=== PATIENT | female | born 1990 ===

== ENCOUNTER 2016-07-31 14:38 | Inpatient (IN) ==
[2016-07-31 15:26] LABS: Basophils % 0.3 %; Eosinophils # 0.1 K/mcL (0.0-0.6); Eosinophils % 0.5 %; Hematocrit 37.2 % (35.3-44.9); Hemoglobin 13.1 g/dL (11.5-15.4); Immature Granulocytes % 0.7 % (0-4); Lymphocytes # 1.8 K/mcL (0.6-4.6); Lymphocytes % 16.3 %; Mean Corpuscular HGB Conc 35.2 g/dL (31.6-35.5); Mean Corpuscular Hemoglobin 30.9 pg (28.0-33.3); Mean Corpuscular Volume 87.7 fL (83.0-100.0); Mean Platelet Volume 10.1 fL (9.4-12.4); Monocytes # 0.4 K/mcL (0.0-1.3); Monocytes % 3.3 %; Neutrophils # 8.6 K/mcL (1.6-8.9); Platelet Count 224 K/mcL (140-400); Red Blood Count 4.24 M/mcL (3.82-4.97); Segmented Neutrophils % 78.9 %
[2016-07-31 15:30] LABS: Protein/Creatinine Ratio,Urine 0.23 mg/mg (0-0.20)
[2016-07-31 15:34] LABS: Alanine Aminotransferase 37 Units/L (0-55); Aspartate Amino Transferase 37 Units/L (5-34); BUN/Creatinine Ratio 15 (6-26); Blood Urea Nitrogen 10 mg/dL (7-20); Lactate Dehydrogenase 228 Units/L (159-327); Uric Acid 5.3 mg/dL (2.6-6.0); eGFR For African Americans > 60 (> 60); eGFR For Non-African Americans > 60 (> 60)
[2016-07-31] MEDS ORDERED: miSOPROStol 25 MCG TABLET VG PRN (15:45)
[2016-07-31] MEDS ORDERED: Naloxone 0.4 MG/ML INJ IVP PRN (15:45)
[2016-07-31] MEDS ORDERED: Ondansetron 4 MG/2 ML VIAL IVP PRN (15:45)
[2016-07-31] MEDS ORDERED: Famotidine 20 MG/2 ML VIAL IVP PRN (15:45)
--- NOTE | 2016-07-31 16:12 | OB/GYN History & Physical ---
Date of Encounter: 07/31/16 Time of Encounter: 15:54 Assessment and Plan (1) 38 weeks gestation of Current visit: Yes Status: Acute (2) Preeclampsia Current visit: Yes Status: Acute Pt presenting with edema, headache, and proteinuria with elevated blood pressure in office. Admit for IOL. Cytotec 25mcg vaginally. GBS negative. Epidural when requested. Anticipate . Qualifiers: Trimester: third trimester Qualified Code(s): O14.93 - Unspecified pre- eclampsia, third trimester History of Present Illness Chief complaint: elevated blood pressure, proteinuria, headache HPI: Ms. Whipple is a 25 year old female presenting at 38w6d for IOL due to new onset of HTN with headache and 8lb weight gain. She denies other complaints today. Good FM. This has been uncomplicated. Blood type B positive. Rubella immune. Serologies and GBS negative. Past Med Surg Social Fam HX - Past Medical History Medical history: no medical history Psychiatric history: no psych history - Past Surgical History Surgical History: other - Social History Smoking Status: Former smoker Alcohol use: none Drug use: none - Family History Mother Living Status: Still Living Hx Family Cardiac Disorders: No Hx Family Respiratory Disorders: No Hx Family Cancer: No Hx Family GI Disorders: No Hx Family Genitourinary Disorders: No Hx Family Endocrine Disorder: Yes (hypothyroidism) Hx Family Musculoskeletal Disorders: No Hx Family Neuromuscular Disorders: No Hx Family Neurologic Disorders: No Hx Family HEENT Disorders: No Hx Family Autoimmune Disorders: No Hx Family Reproductive Disorders: No Hx Family Psychosocial Disorders: No Hx Family Medical Disorders: Yes (ITP) Obstetrical History - Pregnancies : 1 Medications and Allergies Cyanocobalamin (Vitamin B-12) [Vitamin B12] 1,000 mcg PO DAILY 07/31/16 [History ] Doxylamine/Pyridoxine HCl [Diclegis Dr 10-10 mg Tablet] 1 each PO DAILY [History] Ferrous Sulfate [Iron] 325 mg PO DAILY 07/31/16 [History] Pnv62/FA/Om3/Dha/Epa/Fish Oil [Cvs Gummy Vitamins] 1 each PO DAILY 01/09 [History] Allergies No Known Allergies Allergy (Verified 07/31/16 15:38) Review of System OB All systems PM: reviewed and no additional remarkable complaints except as stated Exam - Vital Signs Vital signs: Initial Vital Signs Temp Pulse Resp BP 97.3 F L 98 20 120/71 07/31/16 15:24 07/31/16 15:24 07/31/16 15:24 07/31/16 15:24 - Constitutional Constitutional: well developed, well nourished, no acute distress, average body habitus - HEENT HEENT: Mucus Membranes Moist - Lungs Respiratory exam: CTAB - Cardiovascular Cardiovascular exam: RRR, +S1, +S2 - Abdomen Abdomen: Present: gravid, non tender - Extremities Extremities exam: normal inspection Deep Tendon Reflex Grade: 2+ Normal - Vulva Vulva: bilateral: normal - Vagina Vagina: Present: normal moisture - Cervix Dilation: 1 Effacement: 0 Station: -3 - Uterus Uterus exam: Present: normal size - Anus/Rectum Anus/Rectum: Present: normal perianal skin Results Result Diagrams: 07/31/16 15:10 07/31/16 15:10 Abnormal lab results AST 37 Units/L (5-34) H 07/31/16 15:10 Protein/Creatinin Ratio 0.23 mg/mg (0-0.20) H 07/31/16 14:55 Urine Total Protein 26 mg/dL (1-14) H 07/31/16 14:55 All other labs normal. - VTE Reasons for not Prescribing Prophylaxis: Treatment not Indicated - Low risk for VTE
[2016-07-31] MEDS ORDERED: Mag Hydrox/Al Hydrox/Simeth 30 ML UDC PO PRN (16:20)
--- NOTE | 2016-07-31 19:16 | OB Labor Progress Note ---
Date of Encounter: 07/31/16 Time of Encounter: 18:10 Labor Progress Note - Subjective Subjective: Pt comfprtable, reports feeling a rare contraction. Fetus active. Denies CANTU, BV, epigastric pain - Vital Signs Vital Signs: Afeb, VSS - Cervix Cervix: 2/50/-1/post - Heart Tones Heart Tones: 120s CAT1 - [place]: Irreg, q 2-5' - Interventions Interventions: 38.6 wk IUP w/ PreE for induction, stable - Plan Plan: Continue w/ current plan. Good response to initial cytotec
[2016-07-31] MEDS ORDERED: Ringers Solution, Lactated 500 ML IVC ONE (21:15)
[2016-07-31] MEDS ORDERED: Epidural Premix (fent/bupiv) 110 ML EP SCH (21:15)
--- NOTE | 2016-07-31 21:15 | Anesthesia Evaluation PreOp ---
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 Other Medical History: Denies Any Significant HX Anesthesia History: No Prior Anesthetic Complications Alcohol Use: none Drug use: none Medications and Allergies Cyanocobalamin (Vitamin B-12) [Vitamin B12] 1,000 mcg PO DAILY 07/31/16 [History ] Doxylamine/Pyridoxine HCl [Diclegis Dr 10-10 mg Tablet] 1 each PO DAILY [History] Ferrous Sulfate [Iron] 325 mg PO DAILY 07/31/16 [History] Pnv62/FA/Om3/Dha/Epa/Fish Oil [Cvs Gummy Vitamins] 1 each PO DAILY 01/09 [History] Allergies No Known Allergies Allergy (Verified 07/31/16 15:38) - Meds/Allergy Pre-op Review Medications Reviewed: Yes Allergies Reviewed: Yes Beta Blockers on Current Med List: No Anesthesia Results - Labs 07/31/16 15:10 07/31/16 15:10 Anesthesia Exam 114/74 hr 74 Height: 1.63m 5'4" Weight: 89.5kg NPO (# of Hours): 4 Pain Scale: 0 Pain Scale Used: Numeric (1 - 10) - HEENT Pupil (Motor): Pupils equal Mallampati: II Teeth: Normal Oral Opening: Greater than 3 - 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
[2016-07-31] MEDS ORDERED: miSOPROStol 25 MCG TABLET PO STA (21:43)
--- NOTE | 2016-07-31 22:13 | OB Labor Progress Note ---
Date of Encounter: 07/31/16 Time of Encounter: 22:11 Labor Progress Note - Subjective Subjective: Pt becoming more uncomfortable with contractions. Not requesting pain meds at this time - Vital Signs Vital Signs: Afeb, VSS BP 123/59 - Cervix Cervix: 3/70/0, vtx - Heart Tones Heart Tones: 120s baseline, CAT1 - [place]: irreg q 3-7' - Interventions Interventions: 38.6 wk IUP w/ PreE for induction. Case previously discussed with Dr Ch who requested pt to be induced - Plan Plan: Start po cytotec. Continue induction. Pain management as needed
[2016-08-01] MEDS ORDERED: Oxytocin 20 units/ LR 1000 mL 20 UNIT/1,000 ML BAG IVC SCH (03:30)
[2016-08-01] MEDS: Ringers Solution, Lactated 1,000 ML IVC SCH ×2 (05:21→08:42)
[2016-08-01] MEDS ORDERED: *HR* FentaNYL (PF) 100 MCG/2 ML VIAL ONE ×2 (06:17→16:43)
[2016-08-01] MEDS ORDERED: Epidural Premix (fent/bupiv) 110 ML EP ONE ×2 (06:18→13:40)
[2016-08-01] MEDS ORDERED: *HR* Ropivacaine/PF 0.2% 10 ML AMPUL ONE ×2 (06:18→16:43)
--- NOTE | 2016-08-01 06:46 | Anesthesia Procedures ---
Date of Encounter: 08/01/16 Time of Encounter: 06:18 Procedures: Anesthesia - Epidural/Spinal Patient ID/Chart reviewed: Yes Patient examined: Yes OB Eval: Gestational age: 38.6 OB Eval: : 1 OB Eval: Hx Para: 0 OB Eval: Contractions: Non-stressed pattern Consent Obtained: Yes Supplemental Oxygen: None/Room Air Site Prep: Aseptic Technique, Sterile prep and drape, 0.5% Chlorhexidine/Alcohol Patient position: upright Local Anesthetic: Lidocaine 1% Amount of Local Anesthetic used: 2.5 Touhy Needle Gauge: 18 Touhy Needle Depth (cm): 8 Catheter Depth at Skin (cm): 14 Test Dose (1.5% Lido + Epi): Volume given (mls): 5 Test Dose Result: Negative Loading Dose: Fentanyl (mcg): 100 Loading Dose: Other: Ropivacaine 0.2% 10mL Loading Dose Administered: Thru Catheter Infusion Med: 0.125% Bupivacaine w/ 2 mcg/ml Fentanyl Infusion Rate (mls/hr): 14 (Bolus 4mL q15min; max 3/hr) Catheter Secured in Place: Tegaderm, Tape Interspace Used: L3-L4 Loss of Resistance (LINDSAY): Yes Blood: No CSF: No Paresthesia: No Procedure: x2 attempt. Patient tolerated well. Vitals + FHT's: VSS and FHR stable throughout procedure. See nursing documentation.
[2016-08-01] MEDS: EPHEDrine 50 MG/ML VIAL IVP PRN ×2 (08:42→10:13)
--- NOTE | 2016-08-01 16:09 | OB Labor Progress Note ---
Date of Encounter: 08/01/16 Time of Encounter: 12:37 Labor Progress Note - Subjective Subjective: Pt comfortable with epidural. - Cervix Cervix: 4-5cm - Heart Tones Heart Tones: Category II - Interventions Interventions: AROM for small amount clear fluid. IUPC placed. - Plan Plan: Continue to monitor. Anticipate .
--- NOTE | 2016-08-01 16:16 | OB Labor Progress Note ---
Date of Encounter: 08/01/16 Time of Encounter: 15:00 Labor Progress Note - Subjective Subjective: Pt reports some pelvic pressure at this time. - Cervix Cervix: 7cm - Heart Tones Heart Tones: Category I - [place]: 2-3 minutes - Plan Plan: Continue to monitor. Anticipate .
--- NOTE | 2016-08-01 18:42 | OB/GYN Procedure Note ---
Delivery - Delivery Date: 08/01/16 Provider: Sage Dougherty Intrapartum events: none Delivery induction: AROM, oxytocin, misoprostol Delivery monitor: external FHT, external uterine, internal uterine Anesthesia: epidural Estimated Blood Loss: 300 - (s) Infant A Delivery Date: 08/01/16 Delivery Time: 18:03 Presentation: vertex Position: KARLIE Route of delivery: vacuum extraction Gender: Male Viability: Viable Pounds: 7 Ounces: 4 Weight Gram: 3.29 kg at 1 minute: 8 at 5 mins: 9 Shoulder Dystocia: not encountered Placenta: spontaneous Cord: 3 umbilical vessels - Repair Episiotomy: none Laceration Description: Perineal - 2nd Degree, Labial - Complications Delivery complications: none - Disposition Mom disposition: stable in LDR [place] disposition: stable in LDR - Comments Comments: Patient progressed to complete dilatation with a +3 station with bradycardia present this did not respond to scalp stim therefore permission was obtained from the patient to proceed with a vacuum-assisted vaginal delivery. A Kiwi was placed on the scalp with appropriate position resulting in a vacuum-assisted vaginal delivery of a viable male infant. The vacuum time was 30 seconds, at a pressure of 550 mmHg. scores were 8 and 9 at 15 minutes respectively, and the infant weighed 7 lbs. 4 oz. The placenta delivered spontaneously and appeared to be intact. A right labial laceration was repaired with 4-0 Vicryl suture, a second-degree perineal laceration was repaired with 3- 0 Vicryl suture. All sponge needle and sponge count reported as correct. Estimated blood loss 300 mL's. Rectal sphincter muscles intact. No shoulder dystocia was encountered, no nuchal cord was present.
[2016-08-01] MEDS ORDERED: Oxytocin 20 units/ LR 1000 mL 20 UNIT/1,000 ML BAG IVC ONE ×2 (19:51→20:44)
[2016-08-01] MEDS ORDERED: Oxytocin 20 units/ LR 1000 mL 20 UNIT/1,000 ML BAG IV SCH (20:44)
[2016-08-02] MEDS: Acetaminophen 325 MG TABLET PO PRN ×3 (03:53→18:18)
[2016-08-02 03:59] LABS: Basophils % 0.2 %; Eosinophils % 0.1 %; Hematocrit 35.3 % (35.3-44.9); Hemoglobin 12.1 g/dL (11.5-15.4); Immature Granulocytes % 0.6 % (0-4); Lymphocytes # 2.2 K/mcL (0.6-4.6); Lymphocytes % 13.3 %; Mean Corpuscular HGB Conc 34.3 g/dL (31.6-35.5); Mean Corpuscular Hemoglobin 30.8 pg (28.0-33.3); Mean Corpuscular Volume 89.8 fL (83.0-100.0); Mean Platelet Volume 10.3 fL (9.4-12.4); Monocytes # 0.6 K/mcL (0.0-1.3); Monocytes % 3.9 %; Neutrophils # 13.4 K/mcL (1.6-8.9); Platelet Count 205 K/mcL (140-400); Red Blood Count 3.93 M/mcL (3.82-4.97); Red Cell Distribution Width 12.9 % (11.5-14.5); Segmented Neutrophils % 81.9 %
--- NOTE | 2016-08-02 07:54 | OB/GYN Progress Note ---
Date of Encounter: 08/02/16 Time of Encounter: 07:52 - Assessment and Plan (1) Vaginal delivery Current Visit: Yes Status: Acute Pt stable, Continue current management. Subjective - Subjective Interval history: Pt resting in room states feeling well and pain is well managed. Patient reports: appetite normal, pain well controlled [place]: doing well Objective - Latest Vital Signs Latest vital signs: Vital Signs Temp Pulse Resp BP Pulse Ox 08/02/16 03:54 99.2 F 92 16 117/79 100 08/01/16 22:48 98.4 F 90 14 123/73 98 08/01/16 21:45 98.5 F 98 16 123/77 98 08/01/16 20:40 98.3 F 87 16 126/84 99 Intake and Output 08/01/16 08/01/16 08/02/16 15:59 23:59 07:59 Intake Total 1000 / 1000 Output Total 850 / 850 Balance 150 / 150 Intake: IV Fluids 1000 / 1000 Lactated Ringers 1,000 ML 1000 / 1000 @ 125 mls/hr IVC .Q8H [facility] Rx#:[id number] Output: Catheter 850 / 850 Other: Weight 86.319 kg - Exam Lungs: bilateral: normal Chest: Normal S1, Normal S2 Extremities: Present: normal Abdomen: Present: normal appearance, soft Uterus: Present: firm - Labs Labs: Laboratory Results - last 24 hr 08/02/16 03:33 WBC 16.4 H D RBC 3.93 Hgb 12.1 Hct 35.3 MCV 89.8 MCH 30.8 MCHC 34.3 RDW 12.9 Plt Count 205 MPV 10.3 Immature Gran % 0.6 Seg Neutrophils % 81.9 Lymphocytes % 13.3 Monocytes % 3.9 Eosinophils % 0.1 Basophils % 0.2 Neutrophils # 13.4 H Lymphocytes # 2.2 Monocytes # 0.6 Eosinophils # 0.0 Basophils # 0.0
[2016-08-02] MEDS: Prenatal Vit/FA 1 EACH TABLET PO SCH (08:56)
[2016-08-02] MEDS: Ibuprofen 600 MG TABLET PO PRN (13:57)
[2016-08-03] MEDS: Ibuprofen 600 MG TABLET PO PRN ×2 (00:01→08:51)
--- NOTE | 2016-08-03 08:18 | Discharge Summary ---
Date of Encounter: 08/03/16 Time of Encounter: 08:10 - Discharge Diagnosis (1) Vaginal delivery Priority: Primary Status: Acute - Discharge Medications Prescriptions: Ibuprofen [Motrin] 600 mg PO Q6HR PRN #30 tablet PRN Reason: pain Ferrous Sulfate [Iron] 325 mg PO DAILY #30 tablet Home Medications: Cyanocobalamin (Vitamin B-12) [Vitamin B12] 1,000 mcg PO DAILY 07/31/16 [History ] Doxylamine/Pyridoxine HCl [Diclegis Dr 10-10 mg Tablet] 1 each PO DAILY [History] Pnv62/FA/Om3/Dha/Epa/Fish Oil [Cvs Gummy Vitamins] 1 each PO DAILY 01/09 [History] Ferrous Sulfate [Iron] 325 mg PO DAILY #30 tablet 08/03/16 [Rx] Ibuprofen [Motrin] 600 mg PO Q6HR PRN #30 tablet 08/03/16 [Rx] Allergies/Adverse Reactions: Allergies No Known Allergies Allergy (Verified 07/31/16 15:38) Data Procedures and tests throughout hospitalization: Laboratory Tests 07/31/16 07/31/16 07/31/16 14:55 15:10 15:10 WBC 10.9 RBC 4.24 Hgb 13.1 Hct 37.2 MCV 87.7 MCH 30.9 MCHC 35.2 RDW 13.0 Plt Count 224 MPV 10.1 Immature Gran % 0.7 Seg Neutrophils % 78.9 Lymphocytes % 16.3 Monocytes % 3.3 Eosinophils % 0.5 Basophils % 0.3 Neutrophils # 8.6 Lymphocytes # 1.8 Monocytes # 0.4 Eosinophils # 0.1 Basophils # 0.0 BUN 10 Creatinine 0.66 Est GFR ( Amer) > 60 Est GFR (Non-Af Amer) > 60 BUN/Creatinine Ratio 15 Uric Acid 5.3 AST 37 H ALT 37 Lactate Dehydrogenase 228 Urine Creatinine 115 Protein/Creatinin Ratio 0.23 H Urine Total Protein 26 H 08/02/16 03:33 WBC 16.4 H D RBC 3.93 Hgb 12.1 Hct 35.3 MCV 89.8 MCH 30.8 MCHC 34.3 RDW 12.9 Plt Count 205 MPV 10.3 Immature Gran % 0.6 Seg Neutrophils % 81.9 Lymphocytes % 13.3 Monocytes % 3.9 Eosinophils % 0.1 Basophils % 0.2 Neutrophils # 13.4 H Lymphocytes # 2.2 Monocytes # 0.6 Eosinophils # 0.0 Basophils # 0.0 BUN Creatinine Est GFR ( Amer) Est GFR (Non-Af Amer) BUN/Creatinine Ratio Uric Acid AST ALT Lactate Dehydrogenase Urine Creatinine Protein/Creatinin Ratio Urine Total Protein Date of admission: 07/31/16 14:38 Primary care physician: PCP NO Consults: 08/01/16 20:44 Consult to Director Of Clinical Applications [CONS] Routine Comment: Vaginal delivery, consult needed Discharging clinician: Gianfranco Jaocbo Anticipated date of discharge: 08/03/16 - Patient Status Disposition: Home, Self-Care Condition: Good Functional capacity at discharge: independent ambulation Overall status at discharge: patient is progressing back to baseline - Discharge Instructions Follow Up With: Chantelle Ch DO [Partnered Physician] - (August 30, 2016 @ 10:15 am) NO,PCP [Primary Care Provider] - - Diet and Activity Activity: increase activity as tolerated Diet: advance to your usual diet Hospital Course Procedures: vaginal delivery Reason for admission: active labor Delivery: Episiotomy: none Laceration: none Discharge diagnosis: IUP at term delivered, pre-eclampsia [place] baby: female Hospital course: Patient is a 25-year-old female who presented for delivery. Patient had elevated blood pressures and was worked up for preeclampsia. Patient did have a vaginal delivery without complications. PIH labs were all within normal limits blood pressure was stable and she was discharged home on hospital day #2 with a prescription for Motrin 600 mg and iron sulfate. Blood count was 8.5 she was asymptomatic. Time Attestation: Total time spent providing and/or coordinating discharge services: Exam - Constitutional Vitals: Temp Pulse Resp BP Pulse Ox 98.3 F 79 16 109/73 98 08/03/16 05:11 08/03/16 05:11 08/03/16 05:11 08/03/16 05:11 08/03/16 05:11 General appearance IM: A&O X 3 - Respiratory Respiratory exam: Present: CTAB - Cardiovascular Cardiovascular exam IM: Present: RRR - GI/Abdominal GI/Abdominal exam IM: normal bowel sounds - Uterus Position: At Umbilicus
[2016-08-03] MEDS: Prenatal Vit/FA 1 EACH TABLET PO SCH (08:52)
[2016-08-03 09:51] VITALS: BP 112/78
== END 2016-08-03 13:46 | disposition home or self-care (01) | DRG 775 ==
LOC: 1NENULAB → OBSVTOIN 14:38 → 1NENUOBS 08-01 20:44
PROVIDERS: ADMIT Obstetrics & Gynecology; ATTEND Obstetrics & Gynecology

== ENCOUNTER 2017-07-29 11:46 | Observation (INO) ==
--- NOTE | 2017-07-29 12:47 | OB/GYN Progress Note ---
Date of Encounter: 07/29/17 Time of Encounter: 12:44 - Assessment and Plan (1) 31 weeks gestation of Current Visit: Yes Status: Acute (2) Headache in , antepartum Current Visit: Yes Status: Acute All PIH labs WNL Encouraged patient to increase water intake Discharge home Follow up in office as scheduled Return for worsening symptoms. Subjective - Subjective Interval history: Sierra is a 26 yo who presents with c/o CANTU increasing in severity x 1 week and unrelieved by PO tylenol. She also c/o intermittent RUQ pain along with vision changes including floaters and dizziness. She reports her BP this morning was 93/54 which she states is low for her. Denies LOF, ctx, vaginal bleeding. Endorses good FM. Objective - Vital Signs Vital Signs: Intake and Output 07/28/17 07/29/17 07/29/17 23:59 07:59 15:59 Other: Weight 90.3 kg Patient Weight 07/29/17 23:59 Weight 90.3 kg - Exam FHR: auscultation normal FHR comments: Baseline 135 Accelerations present 10x10 No decelerations noted No toco activity FHR category I Auscultation: bilateral: normal Abdomen: Present: normal appearance, soft, gravid Uterus: Present: normal, firm
[2017-07-29 13:12] LABS: Basophils % 0.3 %; Eosinophils # 0.1 K/mcL (0.0-0.6); Eosinophils % 0.5 %; Hematocrit 38.4 % (35.3-44.9); Immature Granulocytes % 0.7 % (0-4); Lymphocytes % 16.2 %; Mean Corpuscular HGB Conc 33.9 g/dL (31.6-35.5); Mean Corpuscular Hemoglobin 30.4 pg (28.0-33.3); Mean Corpuscular Volume 89.9 fL (83.0-100.0); Mean Platelet Volume 9.7 fL (9.4-12.4); Monocytes # 0.4 K/mcL (0.0-1.3); Monocytes % 3.4 %; Neutrophils # 9.6 K/mcL (1.6-8.9); Platelet Count 243 K/mcL (140-400); Red Blood Count 4.27 M/mcL (3.82-4.97); Red Cell Distribution Width 13.1 % (11.5-14.5); Segmented Neutrophils % 78.9 %
[2017-07-29 13:34] LABS: Amphetamine Screen,Urine Negative ng/mL (Cutoff=1000); Barbiturate Screen,Urine Negative ng/mL (Cutoff=200); Benzodiazepines Screen,Urine Negative ng/mL (Cutoff=200); Cannabinoid Screen,Urine Negative ng/mL (Cutoff = 50); Cocaine Screen,Urine Negative ng/mL (Cutoff= 300); Opiate Screen,Urine Negative ng/mL (Cutoff=300); Phencyclidine Screen,Urine Negative ng/mL (Cutoff=25)
[2017-07-29 13:36] LABS: Alanine Aminotransferase 12 Units/L (7-52); Aspartate Amino Transferase 14 Units/L (13-39); BUN/Creatinine Ratio 13 (6-26); Blood Urea Nitrogen 7 mg/dL (6-20); Lactate Dehydrogenase 152 Units/L (140-271); Uric Acid 4.6 mg/dL (2.3-7.6); eGFR For African Americans > 60 (> 60); eGFR For Non-African Americans > 60 (> 60)
[2017-07-29 13:38] LABS: Protein/Creatinine Ratio,Urine 0.15 mg/mg (0.00-0.20)
== END 2017-07-29 14:18 | disposition home or self-care (01) ==
LOC: 1NENULAB
PROVIDERS: ADMIT Obstetrics & Gynecology; ATTEND Obstetrics & Gynecology

== ENCOUNTER 2017-09-15 10:45 | Observation (INO) ==
[2017-09-15 11:28] LABS: Basophils # 0.1 K/mcL (0.0-0.2); Basophils % 0.5 %; Eosinophils # 0.2 K/mcL (0.0-0.6); Eosinophils % 1.4 %; Hematocrit 39.1 % (35.3-44.9); Hemoglobin 13.6 g/dL (11.5-15.4); Immature Granulocytes % 0.8 % (0-4); Lymphocytes # 3.2 K/mcL (0.6-4.6); Lymphocytes % 26.7 %; Mean Corpuscular HGB Conc 34.8 g/dL (31.6-35.5); Mean Corpuscular Hemoglobin 30.7 pg (28.0-33.3); Mean Corpuscular Volume 88.3 fL (83.0-100.0); Mean Platelet Volume 10.2 fL (9.4-12.4); Monocytes # 0.6 K/mcL (0.0-1.3); Neutrophils # 7.8 K/mcL (1.6-8.9); Platelet Count 226 K/mcL (140-400); Red Blood Count 4.43 M/mcL (3.82-4.97); Red Cell Distribution Width 13.2 % (11.5-14.5); Segmented Neutrophils % 65.6 %
[2017-09-15 11:43] LABS: Creatinine,Urine 67 mg/dL; Protein/Creatinine Ratio,Urine 0.18 mg/mg (0.00-0.20)
[2017-09-15 11:47] LABS: Alanine Aminotransferase 17 Units/L (7-52); Aspartate Amino Transferase 24 Units/L (13-39); BUN/Creatinine Ratio 13 (6-26); Blood Urea Nitrogen 7 mg/dL (6-20); Lactate Dehydrogenase 191 Units/L (140-271); Uric Acid 5.4 mg/dL (2.3-7.6); eGFR For African Americans > 60 (> 60); eGFR For Non-African Americans > 60 (> 60)
--- NOTE | 2017-09-15 11:58 | OB/GYN Progress Note ---
Date of Encounter: 09/15/17 Time of Encounter: 11:55 - Assessment and Plan (1) 37 weeks gestation of Current Visit: Yes Status: Acute (2) Headache in , antepartum Current Visit: No Status: Acute Pt reports CANTU has been present for 2 months and the same thing happened with her last . PIH labs normal. BP's all normal in triage. Discharge home with precautions. Subjective - Subjective Interval history: 26 year-old presenting at 37w5d from office for elevated blood pressure. She reports that she has had a headache for the last two months and blurry vision. She states she had the same thing with her last . She was finally diagnosed with preeclampsia when her liver enzymes went up at the end of her last . She denies contractions, leaking, or bleeding. Good FM. She does have a blood pressure cuff at home to monitor her BP. Antepartum ROS: movement normal, no loss of fluid, no vaginal bleeding, no contractions Objective - Vital Signs Vital Signs: Intake and Output 09/14/17 09/15/17 09/15/17 23:59 07:59 15:59 Other: Weight 94.4 kg Patient Weight 09/15/17 23:59 Weight 94.4 kg - Exam FHR: category 1 FHR comments: 130 BPM, reactive NST Auscultation: bilateral: normal Abdomen: Present: soft, gravid Uterus: Present: normal Comments: normal reflexes - Labs Labs: Abnormal lab results WBC 11.9 K/mcL (4.3-11.1) H 09/15/17 11:09 Creatinine 0.52 mg/dL (0.60-1.20) L 09/15/17 11:09
[2017-09-15 12:59] LABS: Amphetamine Screen,Urine Negative ng/mL (Cutoff=1000); Barbiturate Screen,Urine Negative ng/mL (Cutoff=200); Benzodiazepines Screen,Urine Negative ng/mL (Cutoff=200); Cannabinoid Screen,Urine Negative ng/mL (Cutoff = 50); Cocaine Screen,Urine Negative ng/mL (Cutoff= 300); Opiate Screen,Urine Negative ng/mL (Cutoff=300); Phencyclidine Screen,Urine Negative ng/mL (Cutoff=25)
== END 2017-09-15 12:03 | disposition home or self-care (01) ==
LOC: 1NENULAB
PROVIDERS: ADMIT Obstetrics & Gynecology; ATTEND Obstetrics & Gynecology

== ENCOUNTER → 2017-09-22 23:48 | Observation (INO) ==
[2017-09-22 21:36] LABS: Amphetamine Screen,Urine Negative ng/mL (Cutoff=1000); Barbiturate Screen,Urine Negative ng/mL (Cutoff=200); Benzodiazepines Screen,Urine Negative ng/mL (Cutoff=200); Cannabinoid Screen,Urine Negative ng/mL (Cutoff = 50); Cocaine Screen,Urine Negative ng/mL (Cutoff= 300); Opiate Screen,Urine Negative ng/mL (Cutoff=300); Phencyclidine Screen,Urine Negative ng/mL (Cutoff=25)
--- NOTE | 2017-09-22 23:50 | OB/GYN Progress Note ---
Date of Encounter: 09/22/17 Time of Encounter: 23:48 - Assessment and Plan (1) Uterine contractions during Current Visit: Yes Status: Acute Ms Whipple was seen by triage nursing staff for labor rule out. NST reactive No change with serial cervical exam Discharge home with labor precautions and kick counts Follow up in office as scheduled and PRN. (2) 38 weeks gestation of Current Visit: Yes Status: Acute Subjective - Subjective Principal diagnosis: Contractions Antepartum ROS: new complaints, movement normal, contractions, no loss of fluid, no vaginal bleeding Objective - Vital Signs Vital Signs: Intake and Output 09/22/17 09/22/17 09/22/17 07:59 15:59 23:59 Other: Weight 95.5 kg Patient Weight 09/22/17 23:59 Weight 95.5 kg - Exam FHR: auscultation normal, category 1 FHR comments: Baseline 125
== END | disposition home or self-care (01) ==
LOC: 1NENULAB
PROVIDERS: ADMIT Advanced Practice Midwife; ATTEND Advanced Practice Midwife

== ENCOUNTER 2017-09-25 13:53 | Inpatient (IN) ==
[2017-09-25] MEDS ORDERED: Naloxone 0.4 MG/ML INJ IVP PRN (14:03)
[2017-09-25] MEDS ORDERED: *HR* Nalbuphine 10 MG/ML AMPUL IVP PRN (14:03)
[2017-09-25] MEDS ORDERED: Ondansetron 4 MG/2 ML VIAL IVP PRN (14:03)
[2017-09-25] MEDS ORDERED: Famotidine 20 MG/2 ML VIAL IVP PRN (14:03)
[2017-09-25] MEDS ORDERED: Oxytocin 20 units/ LR 1000 mL 20 UNIT/1,000 ML BAG IVC SCH (14:45)
[2017-09-25 14:55] LABS: Basophils % 0.2 %; Eosinophils # 0.1 K/mcL (0.0-0.6); Eosinophils % 0.9 %; Hematocrit 37.1 % (35.3-44.9); Hemoglobin 12.9 g/dL (11.5-15.4); Immature Granulocytes % 0.7 % (0-4); Lymphocytes # 2.6 K/mcL (0.6-4.6); Mean Corpuscular HGB Conc 34.8 g/dL (31.6-35.5); Mean Corpuscular Hemoglobin 30.7 pg (28.0-33.3); Mean Corpuscular Volume 88.3 fL (83.0-100.0); Mean Platelet Volume 11.1 fL (9.4-12.4); Monocytes # 0.6 K/mcL (0.0-1.3); Monocytes % 4.7 %; Neutrophils # 9.5 K/mcL (1.6-8.9); Platelet Count 228 K/mcL (140-400); Red Cell Distribution Width 13.4 % (11.5-14.5); Segmented Neutrophils % 73.5 %
--- NOTE | 2017-09-25 15:00 | OB/GYN History & Physical ---
Date of Encounter: 09/25/17 Time of Encounter: 14:58 Assessment and Plan (1) 39 weeks gestation of Current visit: Yes Status: Acute 39+1 week here for induction of labor due to elevated bp in third trimester of . Patient of Dr. Ch. Discussed plan with supervising Supervisor [employer]. Start Pitocin Expectant management Admit to L&D. Electronic monitoring Labs including PIH labs. (2) Encounter for induction of labor Current visit: Yes Status: Acute per plan in assessment above. History of Present Illness Chief complaint: Induction of Labor HPI: Ms. Whipple is a 27 year old at 39 and 1 weeks who presents to L&D for induction at the recommendation of her OB Dr. Ch. Denies vaginal discharge or bleeding, denies contractions. Normal movements. Patient has an uncomplicated thus far except for elevate bp in third trimester for past couple months. Reports headaches and blurry vision. Also has some minimal swelling of face and hands. Previous with preeclampsia. HIV and Hep B non reactive, Varicella and Rubella immune, syphilis negative, GBS negative, B-positive. Denies fevers, chills, sweats, nausea, vomiting, chest pain, shortness of breath , cough, abdominal pain, changes in bowels, dysuria or increased urination, weakness, or loss of sensation. Past Med Surg Social Fam HX - Past Medical History Medical history: no medical history Psychiatric history: no psych history - Past Surgical History Surgical History: other - Social History Smoking Status: Never smoker Alcohol use: none Drug use: none - Family History Mother Adopted: [place]: Stefania Living Status: Still Living Hx Family Cardiac Disorders: No Hx Family Respiratory Disorders: No Hx Family Cancer: No Hx Family GI Disorders: No Hx Family Endocrine Disorder: Yes (hypothyroidism) Hx Family Neuromuscular Disorders: No Hx Family Neurologic Disorders: No Hx Family HEENT Disorders: No Hx Family Autoimmune Disorders: No Hx Family Medical Disorders: Yes (ITP) Obstetrical History - Pregnancies : 2 Para: 1 Livin - History/Complications History/Complications: Current complicated by elevated bp in third trimester, Prior Preeclampsia Medications and Allergies Cyanocobalamin (Vitamin B-12) [Vitamin B12] 1,000 mcg PO DAILY 07/31/16 [History ] Pnv62/FA/Om3/Dha/Epa/Fish Oil [Cvs Gummy Vitamins] 1 each PO DAILY 01/09 [History] Ferrous Sulfate [Iron] 325 mg PO DAILY #30 tablet 08/03/16 [Rx] Aspirin [Adult Aspirin Regimen] 81 mg PO DAILY 07/29/17 [History] 3 Allergy/AdvReac Type Severity Reaction Status Date / Time No Known Allergies Allergy Verified 09/15/17 11:01 Review of System OB - Constitutional Constitutional ROS IM: as per HPI - Eyes Eyes: bilateral: blurred vision - Nose, mouth, and throat Nose, mouth and throat: as per HPI - Cardiovascular Cardiovascular: as per HPI - Respiratory Respiratory: as per HPI - Genitourinary Genitourinary: as per HPI - Neurological Nerological: headache(s) Exam - Constitutional Constitutional: well developed, well nourished, no acute distress, average body habitus - HEENT HEENT: Normocephaly, Mucus Membranes Moist - Neck Neck exam: full ROM, normal inspection, trachea midline - Lungs Respiratory exam: CTAB - Cardiovascular Cardiovascular exam: RRR - Abdomen Abdomen: Present: bowel sounds normal, gravid, non tender - Extremities Extremities exam: full ROM, normal inspection, warm Deep Tendon Reflex Grade: 2+ Normal - Cervix Dilation: 3 Effacement: 90 Station: -2 Results Result Diagrams: 09/25/17 14:26 All other labs normal. - VTE Reasons for not Prescribing Prophylaxis: Treatment not Indicated - Low risk for VTE
[2017-09-25 15:04] LABS: Amphetamine Screen,Urine Negative ng/mL (Cutoff=1000); Barbiturate Screen,Urine Negative ng/mL (Cutoff=200); Benzodiazepines Screen,Urine Negative ng/mL (Cutoff=200); Cannabinoid Screen,Urine Negative ng/mL (Cutoff = 50); Cocaine Screen,Urine Negative ng/mL (Cutoff= 300); Opiate Screen,Urine Negative ng/mL (Cutoff=300); Phencyclidine Screen,Urine Negative ng/mL (Cutoff=25)
[2017-09-25] MEDS ORDERED: Ringers Solution, Lactated 1,000 ML ONE ×3 (16:15→23:29)
[2017-09-25 16:20] LABS: Alanine Aminotransferase 14 Units/L (7-52); Aspartate Amino Transferase 18 Units/L (13-39); BUN/Creatinine Ratio 22 (6-26); Blood Urea Nitrogen 13 mg/dL (6-20); Lactate Dehydrogenase 158 Units/L (140-271); Uric Acid 5.7 mg/dL (2.3-7.6); eGFR For African Americans > 60 (> 60); eGFR For Non-African Americans > 60 (> 60)
[2017-09-25 17:20] LABS: Protein/Creatinine Ratio,Urine 0.15 mg/mg (0.00-0.20)
--- NOTE | 2017-09-25 18:56 | OB Labor Progress Note ---
Date of Encounter: 09/25/17 Time of Encounter: 18:55 Labor Progress Note - Subjective Subjective: Pt states feeling some contractions but not painful - Heart Tones Heart Tones: 135/moderate/+accels/-decels - [place]: adjusted - Plan Plan: Continue to increase pitocin per policy [place] and epidural as desired Anticipate
[2017-09-25] MEDS ORDERED: *HR* FentaNYL (PF) 100 MCG/2 ML VIAL EP ONE (19:28)
[2017-09-25] MEDS ORDERED: Bupivacaine-MPF 0.25% 10 ML VIAL EP ONE (19:28)
[2017-09-25] MEDS ORDERED: Bupivacaine-MPF 0.25% 10 ML VIAL ONE (19:29)
[2017-09-25] MEDS ORDERED: *HR* FentaNYL (PF) 100 MCG/2 ML VIAL ONE (19:29)
[2017-09-25] MEDS ORDERED: Epidural Premix (fent/bupiv) 110 ML EP SCH (19:30)
[2017-09-25] MEDS ORDERED: Epidural Premix (fent/bupiv) 110 ML EP ONE (19:33)
[2017-09-25] MEDS ORDERED: EPHEDrine 50 MG/ML VIAL ONE (20:02)
--- NOTE | 2017-09-25 20:03 | Anesthesia Evaluation PreOp ---
Date of Encounter: 09/25/17 Time of Encounter: 20:01 - Past History Planned Operation: AMADOU Cardiac History: Denies any Significant Hx Pulmonary History: Denies Any Significant HX URGENT CARE PHYSICIAN History: Denies Any Significant HX Other Medical History: Denies Any Significant HX Anesthesia History: No Prior Anesthetic Complications (denies personal h/o GA or NA complications; denies family h/o GA complications), Past Anesthesia (AMADOU x 1 w/ previous ) : Yes Test: Positive Alcohol Use: none Drug use: none Medications and Allergies Cyanocobalamin (Vitamin B-12) [Vitamin B12] 1,000 mcg PO DAILY 07/31/16 [History ] Pnv62/FA/Om3/Dha/Epa/Fish Oil [[facility] Gummy Vitamins] 1 each PO DAILY 01/09 [History] Ferrous Sulfate [Iron] 325 mg PO DAILY #30 tablet 08/03/16 [Rx] Aspirin [Adult Aspirin Regimen] 81 mg PO DAILY 07/29/17 [History] 3 Allergy/AdvReac Type Severity Reaction Status Date / Time No Known Allergies Allergy Verified 09/15/17 11:01 - Meds/Allergy Pre-op Review Medications Reviewed: Yes Allergies Reviewed: Yes Beta Blockers on Current Med List: No Anesthesia Results - Labs 09/25/17 14:26 09/25/17 15:35 Anesthesia Exam 132/87, hr 88, rr 14 O2 Sat Height 1.63 m Weight 96.7 kg NPO (# of Hours): solids > 8hrs Pain Scale: 5 Pain Scale Used: Zamora-Lee (Faces) - HEENT Pupil (Motor): Pupils equal Mallampati: II Teeth: Normal Oral Opening: Greater than 3 - URGENT CARE PHYSICIAN LOC: Oriented URGENT CARE PHYSICIAN Motor: Normal RUE, Normal LUE, Normal RLE, Normal LLE, Normal Face URGENT CARE PHYSICIAN Sensory: Normal: RUE, LUE, RLE, LLE, Face - Cardiac Rhythm: Regular Murmur: None - Pulmonary Breath Sounds: bilateral Clear Respiratory Effort: Symmetrical Anesthesia Assess/Plan ASA Score: 2 Modified Corbin Scale for Level of Consciousness: Anixous, agitated or restless Anesthetic Plan: Regional Autologous Blood: No Monitoring Plan: Standard Monitors Recovery Plan: Other
--- NOTE | 2017-09-25 20:05 | Anesthesia Procedures ---
Date of Encounter: 09/25/17 Time of Encounter: 20:03 Procedures: Anesthesia - Epidural/Spinal Patient ID/Chart reviewed: Yes Patient examined: Yes OB Eval: Gestational age: 39 weeks 1 day OB Eval: : 2 OB Eval: Hx Para: 1 OB Eval: Contractions: Non-stressed pattern Consent Obtained: Yes Supplemental Oxygen: None/Room Air Site Prep: Aseptic Technique, Sterile prep and drape, Povidone-Iodine 1% Patient position: upright Local Anesthetic: Lidocaine 1% Amount of Local Anesthetic used: 3 Touhy Needle Gauge: 18 Touhy Needle Depth (cm): 7 Catheter Depth at Skin (cm): 12 Test Dose (1.5% Lido + Epi): Volume given (mls): 5 Test Dose Result: Negative Loading Dose: 0.25% Marcaine (mls): 5 Loading Dose: Fentanyl (mcg): 100 Loading Dose Administered: Thru Catheter Infusion Med: 0.125% Bupivacaine w/ 2 mcg/ml Fentanyl Infusion Rate (mls/hr): 14 (w/ demand bolus of 5mL q30min PRN) Catheter Secured in Place: Tegaderm, Tape Interspace Used: L3-L4 Loss of Resistance (LINDSAY): Yes Blood: No CSF: No Paresthesia: No Procedure: successful on 1st attempt; patient tolerated procedure well Vitals + FHT's: please see Roxann HENAO's electronic records for VS entry
--- NOTE | 2017-09-25 20:50 | OB Labor Progress Note ---
Date of Encounter: 09/25/17 Time of Encounter: 20:46 Labor Progress Note - Subjective Subjective: Pt comfortable with epidural - Cervix Cervix: 5/90/-1 - Heart Tones Heart Tones: 130/moderate/+accels/-decels - Quinton Quinton: adjust - Interventions Interventions: attempted to AROM unable to feel bag, suture lines palpated. - Plan Plan: Continue pitocin per policy Reposition with peanut ball Anticipate
--- NOTE | 2017-09-26 02:30 | OB/GYN Procedure Note ---
Delivery - Delivery Date: 09/26/17 Provider: Brenna Edmonds Intrapartum events: none Delivery induction: oxytocin Delivery monitor: external FHT, external uterine Anesthesia: epidural Estimated Blood Loss: 200 - (s) Infant A Delivery Date: 09/26/17 Infant Delivery Time: 02:07 Presentation: vertex Position: OA Route of delivery: Gender: Male Viability: Viable Pounds: 6 Ounces: 4 Weight Gram: 2840 kg at 1 minute: 7 at 5 mins: 9 Shoulder Dystocia: not encountered Specimens collected: cord blood Placenta: spontaneous Cord: nuchal cord, 3 umbilical vessels - Repair Episiotomy: none Laceration Description: None - Complications Delivery complications: none Delivery comments: Induction of labor for gestational hypertension, progressed to complete, maternal bearing down efforts of liveborn male. Vertex delivered OA, nuchal cord identified and manually reduced, shoulders and body easily followed. No shoulder dystocia encountered. placed on maternal abdomen , Apgars 7/9. Placenta delivered spontaneously ([place]) and complete upon inspection with a three-vessel cord. Fundus massaged until firm and Pitocin started per policy Perineum intact. EBL 200 - Disposition Mom disposition: stable in LDR disposition: stable in LDR
[2017-09-26] MEDS ORDERED: Benzocaine/Menthol 56 GM AEROSOL SPRAY TP PRN (04:31)
[2017-09-26] MEDS ORDERED: Acetaminophen 325 MG TABLET PO PRN (04:31)
[2017-09-26] MEDS ORDERED: Oxytocin 20 units/ LR 1000 mL 20 UNIT/1,000 ML BAG IVC SCH (04:31)
[2017-09-26] MEDS ORDERED: Lanolin 7 G OINT...G. TP PRN (04:31)
[2017-09-26] MEDS: Ibuprofen 600 MG TABLET PO PRN ×3 (07:33→23:06)
[2017-09-26] MEDS: Prenatal Vit/FA 1 EACH TABLET PO SCH (07:35)
[2017-09-27] MEDS: Ibuprofen 600 MG TABLET PO PRN ×3 (07:45→22:22)
[2017-09-27] MEDS: Prenatal Vit/FA 1 EACH TABLET PO SCH (07:46)
--- NOTE | 2017-09-27 09:26 | OB/GYN Progress Note ---
Date of Encounter: 09/27/17 Time of Encounter: 09:24 - Assessment and Plan (1) (normal spontaneous vaginal delivery) Current Visit: Yes Status: Acute Doing well without c/o. Cont. care. Subjective - Subjective Principal diagnosis: s/p , baby here for 48 hrs r/o sepsis Interval history: Doing well without c/o. Appropriate lochia and cramping. Bottle feeding. No breast c/o. Patient reports: appetite normal : doing well Objective - Latest Vital Signs Latest vital signs: Vital Signs Temp Pulse Resp BP Pulse Ox 09/27/17 07:57 98.1 F 85 14 127/86 98 09/27/17 04:45 98.0 F 88 16 123/81 98 09/27/17 00:11 98.2 F 99 16 119/74 98 09/26/17 19:50 97.5 F L 95 18 118/76 96 09/26/17 15:36 97.5 F L 89 16 127/78 Intake and Output 09/26/17 09/27/17 09/27/17 23:59 07:59 15:59 Intake Total 1200 / 1200 1600 / 1600 Output Total 900 / 900 Balance 1200 / 1200 700 / 700 Intake: Oral 1200 / 1200 1600 / 1600 Output: Urine 900 / 900 Other: Meal Dinner Percent of Meal Consumed 100% Weight 95.028 kg Patient Weight 09/27/17 23:59 Weight 95.028 kg - Exam Lungs: bilateral: normal Chest: Normal S1, Normal S2 Extremities: Present: normal Uterus Position: 2 Fingers Below Umbilicus
[2017-09-28] MEDS: Prenatal Vit/FA 1 EACH TABLET PO SCH (07:49)
[2017-09-28] MEDS: Ibuprofen 600 MG TABLET PO PRN (07:50)
[2017-09-28 08:32] VITALS: BP 116/80
--- NOTE | 2017-09-28 08:33 | Discharge Summary ---
Date of Encounter: 09/28/17 Time of Encounter: 08:30 - Discharge Diagnosis (1) (normal spontaneous vaginal delivery) Priority: Primary Status: Acute Comments: Pt meeting all milestones. She reports mild cramping but no other complaints. She is requesting discharge home today. She declines any contraception prior to discharge. (2) Preeclampsia Priority: Secondary Status: Acute Comments: BP WNL . Qualifiers: Trimester: third trimester Qualified Code(s): O14.93 - Unspecified pre- eclampsia, third trimester - Discharge Medications Prescriptions: Ibuprofen [Motrin] 600 mg PO Q6HR PRN #30 tablet PRN Reason: Cramping Docusate [Colace] 100 mg PO BID #30 capsule Home Medications: Cyanocobalamin (Vitamin B-12) [Vitamin B12] 1,000 mcg PO DAILY 07/31/16 [History ] Pnv62/FA/Om3/Dha/Epa/Fish Oil [[facility] Gummy Vitamins] 1 each PO DAILY 01/09 [History] Benzocaine/Menthol Elrosa [Dermoplast Elrosa] 1 appl TP QID PRN aerosol 09/28/17 [Rx] Docusate [Colace] 100 mg PO BID #30 capsule 09/28/17 [Rx] Ibuprofen [Motrin] 600 mg PO Q6HR PRN #30 tablet 09/28/17 [Rx] Lanolin [Lansinoh] 1 appl TP QID PRN oint...g. 09/28/17 [Rx] Allergies/Adverse Reactions: 3 Allergy/AdvReac Type Severity Reaction Status Date / Time No Known Allergies Allergy Verified 09/15/17 11:01 Data Procedures and tests throughout hospitalization: Laboratory Tests 09/25/17 09/25/17 09/25/17 14:26 14:26 14:26 WBC 13.0 H RBC 4.20 Hgb 12.9 Hct 37.1 MCV 88.3 MCH 30.7 MCHC 34.8 RDW 13.4 Plt Count 228 MPV 11.1 Immature Gran % 0.7 Seg Neutrophils % 73.5 Lymphocytes % 20.0 Monocytes % 4.7 Eosinophils % 0.9 Basophils % 0.2 Neutrophils # 9.5 H Lymphocytes # 2.6 Monocytes # 0.6 Eosinophils # 0.1 Basophils # 0.0 BUN Creatinine Est GFR ( Amer) Est GFR (Non-Af Amer) BUN/Creatinine Ratio Uric Acid AST ALT Lactate Dehydrogenase Urine Creatinine Protein/Creatinin Ratio Urine Total Protein Urine Opiates Screen Negative Ur Barbiturates Screen Negative Ur Phencyclidine Scrn Negative Ur Amphetamines Screen Negative U Benzodiazepines Scrn Negative Urine Cocaine Screen Negative U Marijuana (THC) Screen Negative Specimen Rejected Hemolyzed 09/25/17 09/25/17 14:26 15:35 WBC RBC Hgb Hct MCV MCH MCHC RDW Plt Count MPV Immature Gran % Seg Neutrophils % Lymphocytes % Monocytes % Eosinophils % Basophils % Neutrophils # Lymphocytes # Monocytes # Eosinophils # Basophils # BUN 13 Creatinine 0.59 L Est GFR ( Amer) > 60 Est GFR (Non-Af Amer) > 60 BUN/Creatinine Ratio 22 Uric Acid 5.7 AST 18 ALT 14 Lactate Dehydrogenase 158 Urine Creatinine 60 Protein/Creatinin Ratio 0.15 Urine Total Protein 9 Urine Opiates Screen Ur Barbiturates Screen Ur Phencyclidine Scrn Ur Amphetamines Screen U Benzodiazepines Scrn Urine Cocaine Screen U Marijuana (THC) Screen Specimen Rejected Date of admission: 09/25/17 13:53 Primary care physician: PCP NONE Consults: 09/26/17 04:31 Consult to Supervisor Incising [CONS] Routine Comment: Vaginal delivery, consult needed Discharging clinician: Mer Samuels Anticipated date of discharge: 09/28/17 - Patient Status Disposition: Home, Self-Care Condition: Good Functional capacity at discharge: independent ambulation Overall status at discharge: patient is progressing back to baseline - Discharge Instructions Follow Up With: NONE,PCP [Primary Care Provider] - Brenna Edmonds, CNM [Advanced Practice Nurse] - - Diet and Activity Activity: increase activity as tolerated Diet: regular diet Hospital Course Reason for admission: induction of labor, pre-eclampsia Delivery: Episiotomy: none Laceration: none Other procedures: none complications: none Discharge diagnosis: IUP at term delivered [place] baby: male Hospital course: - Delivery Date: 09/26/17 Provider: Brenna Edmonds Intrapartum events: none Delivery induction: oxytocin Delivery monitor: external FHT, external uterine Anesthesia: epidural Estimated Blood Loss: 200 - Infant (s) A Infant Delivery Date: 09/26/17 Infant Delivery Time: 02:07 Presentation: vertex Position: OA Route of delivery: Gender: Male Viability: Viable Pounds: 6 Ounces: 4 Weight Gram: 2840 kg at 1 minute: 7 at 5 mins: 9 Shoulder Dystocia: not encountered Specimens collected: cord blood Placenta: spontaneous Cord: nuchal cord, 3 umbilical vessels - Repair Episiotomy: none Laceration Description: None - Complications Delivery complications: none Delivery comments: Induction of labor for gestational hypertension, progressed to complete, maternal bearing down efforts of liveborn male. Vertex delivered OA, nuchal cord identified and manually reduced, shoulders and body easily followed. No shoulder dystocia encountered. placed on maternal abdomen , Apgars 7/9. Placenta delivered spontaneously ([place]) and complete upon inspection with a three-vessel cord. Fundus massaged until firm and Pitocin started per policy Perineum intact. EBL 200 - Disposition Mom disposition: home PPD2 disposition: home with mother, bottle feeding Time Attestation: Total time spent providing and/or coordinating discharge services: Time Spent: Less than 30 minutes Exam - Constitutional Vitals: Temp Pulse Resp BP Pulse Ox 98.6 F 77 16 126/76 97 09/28/17 04:01 09/28/17 04:01 09/28/17 04:01 09/28/17 04:01 09/28/17 04:01 General appearance IM: A&O X 3 - Respiratory Respiratory exam: Present: CTAB - Cardiovascular Cardiovascular exam IM: Present: RRR - GI/Abdominal GI/Abdominal exam IM: soft - Uterine Tone: Firm Uterus Position: 1 Finger Below Umbilicus - Extremities Exam Extremities exam IM: Present: normal inspection, pedal edema (mild bilaterally) - Neurological Exam Neurological exam: normal gait, oriented X3 - Psychiatric Additional comments: reports good mood
== END 2017-09-28 11:54 | disposition home or self-care (01) | DRG 775 ==
LOC: 1NENULAB 13:53 → 1NENUOBS 09-26 04:31
PROVIDERS: ADMIT Student in an Organized Health Care Education/Training Program; ATTEND Student in an Organized Health Care Education/Training Program